=== PATIENT | male | born 1990 | race Hispanic/Latino ===

== ENCOUNTER 2025-09-21 20:53 | Emergency (ER) | payer SELFPAY ==
[2025-09-21 20:55] VITALS: BP 167/94; PULSE 70; RESP 18; TEMP 36.1; O2SAT 98; BMI 35.2
--- NOTE | 2025-09-21 21:23 | EDS_ITS ---
HPI HPI - GI History of Present Illness Chief Complaint: Flank Pain Detail of Chief Complaint: Left flank pain that began on Thursday. Informant: patient and spouse/S.O. (Has a friend in the room that he wants to use as his senior it business analyst.) Abdominal Pain/Flank Pain Onset: Days Context: Gradual Onset Timing: Continuous Quality: Dull Location: Left Flank Current Severity: Mild Maximum Severity: Moderate Worsened by: Nothing Relieved by: Nothing Nausea/Vomiting/Emesis GI Symptom: Positive for Nausea, Vomiting and - (First day then resolved.) Diarrhea/Melena/Hematochezia GI Symptom: Negative for Diarrhea Associated Symptoms Associated Symptoms: Negative for Dysuria, Frequency, Hematuria or Urgency Narrative Narrative: 35-year-old male no CeeNU past medical or surgical history. Complaining of left flank pain since Thursday. He had mild nausea and vomiting the first is since resolved. No prior history. No trauma or injury. No dysuria or hematuria. No fever. Nothing particular makes the pain better he said if he lays in the right spot it might relieve a little. Denies any prior history of similar pain. Prior similar symptoms: No Recent Illness/Hospitalization: No PFSH PFSH Medical History no medical history no medical history Home Medications ?Medication ?Instructions ?Recorded ?Last Taken ?Type hydrocodone 5 mg-acetaminophen 300 1 tab PO Q4H PRN pa in 3 days #12 09/21/25 Unknown Rx mg tablet tabs tamsulosin 0.4 mg capsule 0.4 mg PO DAILY 4 days #4 ca ps 09/21/25 Unknown Rx Allergy/AdvReac Type Severity Reaction Status Date / Time No Known Allergies Allergy Verified 09/21/25 20:56 Social History Smoking Status: Current some day smoker tobacco type: cigarettes ROS ROS ED ROS Narrative Left flank pain. Constitutional Constitutional ED: Denies chills or fever(s) ENT ENT ED: Denies ear pain Cardiovascular Cardiovascular: Denies chest pain Respiratory/Chest Respiratory/Chest: Denies cough or dyspnea Gastrointestinal Gastrointestinal: Reports abdominal pain, nausea, vomiting and other Genitourinary Genitourinary ED: Denies dysuria, hematuria or urinary frequency Musculoskeletal Musculoskeletal: Denies arthralgias, back pain or myalgias Integumentary Denies abscess Neurologic Neurologic: Denies headache(s) Psychiatric Psychiatric: Denies anxiety or depression Endocrine Endocrinology: Denies polydipsia Hematologic/Lymphatic Hematologic/Lymphatic: Denies easy bleeding, easy bruising or lymphadenopathy Allergic/Immunologic Allergic/Immunologic ED: Denies mouth swelling, tongue swelling or urticaria EXAM Physical Exam Narrative Exam Narrative: Well-appearing 35-year-old male sitting upright in bed. Vital signs are stable and afebrile. No acute distress. Accompanied by a friend. H EENT exam pupils round react light. Moist mucous membranes. Neck nontender no JVD. No lymphadenopathy. Lungs clear to auscultation bilaterally. Heart regular rhythm rate about 70 no murmur. Chest wall ribs are nontender. Abdomen soft, nontender, nondistended, normal bowel sounds without peritoneal signs. There is no reproducible abdominal pain. He points to his left flank is not reproducibly tender. There is no signs of trauma. No ecchymosis or bruising. No discoloration. Right upper right lower quadrant unremarkable. Back nontender. No CVA tenderness. Moving all 4 extremities. Nontender no edema normal strength. He is awake alert. He is answering questions following commands. Const Vital Signs: 09/21/25 20:55 Temperature 97 F L Temperature Source Temporal Pulse Rate 70 Respiratory Rate 18 Blood Pressure 167/94 H Blood Pressure Mean 118 Pulse Ox 98 Oxygen Delivery Method Room Air MDM MDM MDM Narrative Medical decision making narrative: 35-year-old male has left flank pain since Thursday. It is not reproducible. Differential would include kidney stone versus other etiologies. There is no history of any trauma. CAT scan and labs are being obtained. He did not want anything for pain he is not having any nausea. Repeat exam at 10:43 PM patient is doing well. I spoke to his friend at the senior it business analyst. He is comfortable being discharged home. We discussed all his test results, urinalysis and CAT scan. Right now is not having much pain he did not wining for pain right now. To be discharged home on Flomax, Vicodin for pain. Outpatient follow-up with urology. He was instructed if he has worsening pain, fever or feels worse to return. They are both comfortable with the plan. History & Record Review Discussion w/independent historian: Patient and Friend Additional record(s) reviewed:: No prior records Lab Data Attestation: I reviewed the patient's lab results. Lab results narrative: CBC shows white count of 10.9. H&H of 15 and 43. Platelets 273. Electrolytes show gap 12. Normal BUN of 13 and creatinine 1.1. Glucose 130. Liver enzymes show a mildly elevated AST, ALT and alk phos. Lipase is normal at 44. Urinalysis shows 50 occult blood. Negative nitrates. No red cells. No white cells. Rare bacteria. CAT scan shows a 6.5 mm proximal third ureteral calculi with hydroureter and mild hydronephrosis. Labs: Laboratory Results - last 24 hr 09/21/25 09/21/25 21:15 21:54 WBC 10.9 RBC 4.88 Hgb 15.0 Hct 43.2 MCV 88.5 MCH 30.7 MCHC 34.7 RDW Std Deviation 41.6 RDW Coeff of Ayesha 12.6 Plt Count 273 MPV 9.8 Immature Gran % (Auto) 0.500 Neut % (Auto) 69.8 Lymph % (Auto) 16.4 L Johnson % (Auto) 12.1 H Eos % (Auto) 0.8 Baso % (Auto) 0.4 Absolute Neuts (auto) 7.6 Absolute Lymphs (auto) 1.79 Nucleated RBC % 0 Sodium 137 Potassium 3.6 Chloride 102 Carbon Dioxide 22.8 Anion Gap 12 BUN 13 Creatinine 1.14 Estim Creat Clear Calc 88.17 Est GFR (MDRD) Non-Af 87 BUN/Creatinine Ratio 11.7 Glucose 130 H Calcium 9.5 Total Bilirubin 0.44 AST 52 H ALT 121 H Alkaline Phosphatase 162 H Total Protein 7.9 Albumin 4.3 Globulin 3.5 Albumin/Globulin Ratio 1.2 Lipase 44 Urine Color Yellow Urine Clarity Cloudy Urine pH 6.5 Ur Specific [place] 1.020 Urine Protein 30 H Urine Glucose (UA) 100 H Urine Ketones Negative Urine Occult Blood 50 H Urine Nitrite Negative Urine Bilirubin Negative Urine Urobilinogen 4 H Ur Leukocyte Esterase Negative Urine RBC 0-5 SEEN Urine WBC 0 SEEN Ur Squamous Epith Cells 0 SEEN Amorphous Sediment 2+ Urine Bacteria RARE Urine Mucus 0 SEEN Radiography Diagnostic Testing: Clinical Impression(s) from Imaging Studies Abdomen/Pelvis CT 09/21/25 21:40 IMPRESSION: 1. Obstructing 6.5 mm proximal left ureteric calculus with mild upstream hydroureteronephrosis. 2. Hepatomegaly and hepatic steatosis. Reading Location: [facility] Discharge Plan Triage Chief Complaint: Flank Pain ED Provider: Rl Woodruff Dx/Rx/DC Orders Clinical Impression: Acute left flank pain, Kidney stone on left side Instructions: ED Kidney Stone with Pain Prescriptions: New hydrocodone-acetaminophen 5-300 mg tablet 1 tab PO Q4H PRN (Reason: pain) 3 Days Qty: 12 0RF tamsulosin 0.4 mg capsule 0.4 mg PO DAILY 4 Days Qty: 4 0RF Primary Care Provider: Care Physician,No Primary Referrals: Sai Hernandez MD [Med Staff - Active Staff, Urology] - As soon as possible Referral Note: You have a left sided kidney stone of 6.5 mm. Care Physician,No Primary [Primary Care Provider, Medical] Activity Restrictions/Additional Instructions: You have a left sided kidney stone that is why you are having the pain. Motrin and Tylenol for pain. Vicodin which is a narcotic for more severe pain. Flomax 1 pill daily to help you pass the stone. Plenty of fluids. Strain your urine to look to see if you passed the kidney stone. Call and follow-up with our urologist Dr. Tico Hernandez to be reevaluated. If you have pain you cannot control, fever, intractable vomiting return. Print Language: [place] Disposition Disposition: Home, Self Care
--- NOTE | 2025-09-21 21:40 | CT_ITS ---
PROCEDURE: ABDOMEN/PELVIS WITHOUT CONT 09/21/2025 REASON FOR EXAM: PAIN TECHNIQUE: Procedure Code: [id number] Modality: CT Procedure: ABDOMEN/PELVIS WITHOUT CONT Noncontrast technique limits evaluation of the abdominal and pelvic viscera. Coronal and Sagittal reconstruction series were provided. One or more dose reduction techniques were used (e.g., Automated exposure control, adjustment of the mA and/or kV according to patient size, use of iterative reconstruction technique). RADIATION DOSE SUMMARY: DLP: 512.41 mGycm COMPARISON: None available FINDINGS: Lung bases: The lung bases are clear. Liver: Hepatomegaly. Hepatic steatosis. Gallbladder: Unremarkable. No biliary ductal dilatation. Spleen: Unremarkable. 1.2 x 1.0 splenule anterior inferior to the spleen. Pancreas: Unremarkable. Adrenals: Unremarkable. Kidneys: Normal in size. Obstructing 6.5 mm proximal left ureteric calculus with mild upstream hydroureteronephrosis. No right hydroureteronephrosis or nephroureterolithiasis. Urinary bladder: Nondistended limiting evaluation. Bowel: The stomach is unremarkable. The small and large bowel are normal in caliber. No evidence of small bowel obstruction. Appendix: Unremarkable. Lymph nodes: Multiple nonspecific subcentimeter mesenteric shotty lymph nodes. No lymphadenopathy. Vasculature: No abdominal aortic aneurysm. Peritoneum / Retroperitoneum: No ascites. Fat containing left inguinal hernia. Tiny fat containing umbilical hernia. Reproductive Organs: The prostate is normal in size. Symmetrical seminal vesicles. Bones: No aggressive osseous lesions. Mild degenerative changes in the lumbar spine. CT/Abdomen/Pelvis without Cont IMPRESSION: 1. Obstructing 6.5 mm proximal left ureteric calculus with mild upstream hydrou reteronephrosis. 2. Hepatomegaly and hepatic steatosis. Reading Location: [id number]
[2025-09-21 22:00] LABS: Mucous, Urine 0 SEEN /hpf (<or=2+); Squamous Epithelial Cells - UA 0 SEEN /hpf (0-5)
[2025-09-21 22:07] LABS: Hematocrit 43.2 % (40-54); Hemoglobin 15.0 g/dL (13.0-16.5); Immature Granulocytes Count 0.050 X10^3/uL (0.0-0.0); Mean Corp Hgb Conc 34.7 g/dL (32-36); Mean Corpuscular Volume 88.5 fL (80-94); Mean Platelet Vol. 9.8 fl (6.2-12.0); NRBC Flagged by Analyzer 0 % (0-5); Platelet Count 273 K/mm3 (150-450); RBC Distribution Width CV 12.6 % (11.6-14.6); RBC Distribution Width SD 41.6 fl (35.1-43.9); Red Blood Count 4.88 M/mm3 (4.6-6.2); White Blood Count 10.9 K/mm3 (4.4-11.0)
[2025-09-21 22:12] LABS: Color, Urine Yellow (Yellow); Glucose, Dipstick 100 mg/dl (Normal); Ketone-Dipstick Negative (Negative); Leukocyte Esterase-Dipstick Negative /ul (Negative); Nitrite-Dipstick Negative (Negative); Occult Blood-Urine 50 /ul (Negative); Protein-Dipstick 30 mg/dl (Negative); Specific Gravity, Urine 1.020 (1.002-1.030); Urine Bilirubin Dipstick Negative (Negative)
[2025-09-21 22:21] LABS: Red Blood Cells-Urine 0-5 SEEN /hpf (0-5)
[2025-09-21 22:26] LABS: AST(SGOT) 52 U/L (<=37); Alanine Aminotransfer ALT/SGPT 121 U/L (<=46); Albumin, Serum 4.3 g/dL (3.5-5.0); Alkaline Phosphatase 162 U/L (40-129); Anion Gap 12 (7-18); BUN 13 mg/dL (4-19); BUN/Creat Ratio 11.7 RATIO (10-20); Calcium,Total 9.5 mg/dL (7.6-11.0); Carbon Dioxide 22.8 mmol/L (20.0-29.0); Chloride 102 mmol/L (96-106); Estimated Creatinine Clearance 88.17 ml/min (50-250); Globulin 3.5 g/dL (2.2-4.2); Glucose 130 mg/dL (70-99); Lipase 44 U/L (13-75); Potassium 3.6 mmol/L (3.5-5.1)
[2025-09-21 23:30] VITALS: BP 148/90; PULSE 61; RESP 18; TEMP 36.5; O2SAT 98
[2025-09-22 01:17] LABS: Amylase 43 U/L (28-100)
== END 2025-09-21 23:57 | disposition home or self-care (01) ==
PROVIDERS: Emergency Provider Emergency Medicine; Visit Provider Emergency Medicine
DX: N20.2 Calculus of kidney with calculus of ureter (principal); F17.210 Nicotine dependence, cigarettes, uncomplicated
CPT/HCPCS: 74176; 80053; 81001; 82150; 83690; 85025; 99282; A4216